=== PATIENT | female | born 1975 | race Caucasian/White ===

== ENCOUNTER 2018-06-12 21:08 | Emergency (ER) | payer OTHER ==
[~2018-06-12] VITALS: Ht 147.3 cm; Wt 90.7 kg
[2018-06-12 21:20] VITALS: BP 135/77
[2018-06-13] MEDS ORDERED: TETANUS-DIPTH-ACEL PERTUSSIS 0.5ML SYRG IM ONE
[2018-06-13] MEDS ORDERED: LET TOPICAL SOLN 5 ML TOP ONE
[2018-06-13] MEDS ORDERED: LIDOCAINE W/ EPINEPHRINE 2% INJ 20ML VIAL ONE (00:01)
[2018-06-13] MEDS ORDERED: LIDOCAINE W/ EPINEPHRINE 2% INJ 20ML VIAL IJ ONE ×2 (00:15)
== END 2018-06-13 01:30 | disposition home or self-care (01) ==
LOC: ER 21:08
DX: S01.112A Laceration without foreign body of left eyelid and periocular area, initial encounter (principal); X58.XXXA Exposure to other specified factors, initial encounter; Y93.89 Activity, other specified; Y99.8 Other external cause status; Y92.89 Other specified places as the place of occurrence of the external cause
CPT/HCPCS: 12013; 90471; 90715; 99283; J3490